=== PATIENT | male | born 1980 | race Caucasian/White ===

== ENCOUNTER 2019-08-15 13:37 | Emergency (ER) | payer OTHER ==
[~2019-08-15] VITALS: Ht 180.3 cm; Wt 108.9 kg
[2019-08-15 14:29] LABS: ABSOLUTE BASOPHILS 0.1 thou/uL (0.0-0.2); ABSOLUTE EOSINOPHILS 0.1 thou/uL (0.0-0.7); ABSOLUTE LYMPHOCYTES 1.3 thou/uL (0.8-5.3); ABSOLUTE MONOCYTES 0.7 thou/uL (0.0-1.2); ABSOLUTE NEUTROPHILS 4.6 thou/uL (1.6-8.1); BASOPHILS 0.8 %; EOSINOPHILS 1.1 %; HEMATOCRIT 46.8 % (42.0-52.0); HEMOGLOBIN 16.5 gm/dL (14.0-18.0); LYMPHOCYTES 19.4 %; MCH 31.9 pg (26.0-34.0); MCHC 35.4 g/dL (28.0-37.0); MCV 90.2 fL (80.0-100.0); MPV 8.9 fl. (7.2-11.1); NUCLEATED RBCS 0 /100WBC; PLATELET COUNT* 164 thou/uL (150-400); POLYS 67.7 %; RBC 5.19 mil/uL (4.50-6.00); RDW-CV 12.6 % (10.5-14.5); WBC 6.8 thou/uL (4.0-11.0)
[2019-08-15 14:41] LABS: CALCIUM 8.1 mg/dL (8.5-10.1); CREATININE 1.1 mg/dL (0.6-1.3); POTASSIUM 3.8 mmol/L (3.5-5.1)
[2019-08-15 14:46] LABS: ALBUMIN 3.8 g/dL (3.4-5.0); TOTAL BILIRUBIN 0.4 mg/dL (<0.1-1.0); TOTAL PROTEIN 7.6 g/dL (6.4-8.2)
[2019-08-15] MEDS ORDERED: MEDROLDOSEPACK PO (15:40)
[2019-08-15] MEDS ORDERED: PROAIR HFA8.5 GM INH (15:40)
[2019-08-15] MEDS ORDERED: ZPAK PO (17:37)
[2019-08-15 17:54] VITALS: BP 117/87
--- NOTE | 2019-08-16 12:32 | EKG ---
[place] [address] ELECTROCARDIOGRAM REPORT Name: NEETA MCKAY Room: [facility]#: [id number] Admission: 08/15/19 Attend Phys: Discharge: 08/15/19 Date of : 76 Date of Service: 08/15/19 1501 Report #: [id number] THIS REPORT FOR: //name// [facility] ED Test Date: 2019-08-15 Test Time: 15:01:27 Pat Name: NEETA GUZMAN Department: Room: Gender: [employer]: : 1980 Requested By: Gillian Reyes Order Number: [id number] MD: Jevon Moon Measurements Intervals [place] Rate: 81 P: 47 MT: 141 QRS: 62 QRSD: 92 T: 51 QT: 357 QTc: 415 Interpretive Statements Sinus rhythm No previous ECG available for comparison Electronically Signed On 08-16-2019 12:32:12 CDT by Jevon Moon [email or web address] <ELECTRONICALLY SIGNED> By: Jevon Moon MD, [facility] 08/16/19 1232 1501 1501 Jevon Moon MD, FAC /EPI
== END 2019-08-15 17:55 | disposition home or self-care (01) ==
LOC: M.ERS 13:37
PROVIDERS: Physician Assistant
DX: U07.1 COVID-19 (principal); J22 Unspecified acute lower respiratory infection